=== PATIENT | male | born 1960 | race Caucasian/White ===

== ENCOUNTER 2018-09-22 21:57 | Emergency (ER) | payer OTHER ==
[2018-09-22 22:47] LABS: Absolute Lymphocytes (CBC) 2.3 K/uL (0.7-4.9); Absolute Monocytes 0.8 K/uL (0.1-1.3); Absolute Neutrophil 4.6 K/uL (1.8-8.0); Hematocrit 49.7 % (39.6-49.0); Lymphocytes % 28.2 % (15.3-44.8); MPV 8.6 fL (7.6-11.3); RBC Red Blood Cell Count 5.47 M/uL (4.33-5.43)
[2018-09-22 23:05] LABS: BUN Blood Urea Nitrogen 21 mg/dL (7-18); Bicarbonate 31 mmol/L (21-32); Glucose Level 161 mg/dL (74-106); NT PRO-BNP 179 pg/mL (<125); Potassium 3.7 mmol/L (3.5-5.1); Sodium Level 140 mmol/L (136-145); Troponin (Emerg Dept Use Only) < 0.02 ng/mL (0.0-0.045)
[2018-09-22] MEDS ORDERED: NITROGLYCERIN 0.4 MG/TAB SL ONE (23:58)
[2018-09-22] MEDS ORDERED: ASPIRIN 81 MG CHEWABLE TABLET ONE (23:58)
--- NOTE | 2018-09-23 00:09 | EDPHYS ---
Physician Documentation [facility] Name: Tani Weston Age: 58 yrs Sex: Male : 1960 Arrival Date: 09/22/2018 Time: 21:58 Bed 19 Private MD: ED Physician Stefan Riggs HPI: 09/22 22:46 This 58 yrs old Male presents to ER via Ambulatory with complaints of Chest rn Pain. 22:46 The patient or guardian reports chest pain that is located primarily in the substernal rn area. Onset: just prior to arrival. The pain radiates to The chest pain is described as causing indigestion, a pressure. Duration: The patient or guardian reports a single episode. Severity of pain: At its worst the pain was moderate in the emergency department the pain is unchanged. The patient has experienced similar episodes in the past. Reports several episodes of chest pain in past, last eval a couple of years ago, states sees Dr. Desouza in [facility], reports told "heart is fine", was at rest, began having pain in thorax, radiates to jaw and back, not better or worse, no improvement with rolaids. No cough/sob. No abd pain. This pain worse than previous episodes and slightly different.. Historical: - Allergies: 22:16 No Known Allergies; fc - Home Meds: 22:16 Bystolic oral oral [Active]; ramipril Oral [Active]; fc - PMHx: 22:16 Hypertension; Cancer- melonoma; Angina; fc - PSHx: 22:16 Melonoma removal; fc - Immunization history:: Last tetanus immunization: unknown, Flu vaccine is up to date. - Social history:: Smoking status: Patient uses tobacco products, denies chronic smoking, but will smoke occasionally, chewing tobacco. - Ebola Screening: : Patient negative for fever greater than or equal to 101.5 degrees Fahrenheit, and additional compatible Ebola Virus Disease symptoms Patient denies exposure to infectious person Patient denies travel to an Ebola-affected area in the 21 days before illness onset. - Family history:: not pertinent. - Hospitalizations: : No recent hospitalization is reported. ROS: 22:46 Constitutional: Negative for fever, chills, and weight loss, Eyes: Negative for injury, rn pain, redness, and discharge, ENT: Negative for injury, pain, and discharge, Cardiovascular: + chest pain Respiratory: Negative for shortness of breath, cough, wheezing, and pleuritic chest pain, Abdomen/GI: Negative for abdominal pain, nausea, vomiting, diarrhea, and constipation, MS/Extremity: Negative for injury and deformity, Skin: Negative for injury, rash, and discoloration, Neuro: Negative for headache, weakness, numbness, tingling, and seizure. Exam: 22:46 Constitutional: This is a well developed, well nourished patient who is awake, alert, rn and in no acute distress. Head/Face: Normocephalic, atraumatic. Eyes: Pupils equal round and reactive to light, extra-ocular motions intact. Lids and lashes normal. Conjunctiva and sclera are non-icteric and not injected. Cornea within normal limits. Periorbital areas with no swelling, redness, or edema. Cardiovascular: Regular rate and rhythm. No pulse deficits. Respiratory: Lungs have equal breath sounds bilaterally, clear to auscultation. No increased work of breathing, no retractions or nasal flaring. Abdomen/GI: soft, non-tender Skin: Warm, dry MS/ Extremity: Pulses equal, no cyanosis. Neurovascular intact. Full, normal range of motion. Equal circumference. Neuro: Awake and alert, GCS 15, oriented to person, place, time, and situation. Vital Signs: 22:00 BP 164 / 103; Pulse 72; Resp 20; Temp 98.1(O); Pulse Ox 98% on R/A; Weight 128.82 kg fc (R); Height 5 ft. 11 in. (180.34 cm) (R); Pain 8/10; 23:00 BP 134 / 95; Pulse 82; Resp 20 S; Pulse Ox 96% on R/A; cc3 09/23 00:06 BP 113 / 69; Pulse 89; Resp 22 S; Pulse Ox 97% on 2 lpm NC; cc3 01:09 BP 119 / 79; Pulse 79; Resp 21 S; Pulse Ox 97% on 2 lpm NC; cc3 09/22 22:00 Body Mass Index 39.61 (128.82 kg, 180.34 cm) MDM: 09/22 22:03 Patient medically screened. rn 09/23 00:06 Differential diagnosis: acute myocardial infarction, acute pericarditis, coronary rn artery disease chest wall pain, congestive heart failure costochondritis, esophagitis, gastritis, pneumonia, pneumothorax. Data reviewed: vital signs, nurses notes, lab test result(s), EKG, radiologic studies, plain films, and as a result, I will admit patient. Counseling: I had a detailed discussion with the patient and/or guardian regarding: the historical points, exam findings, and any diagnostic results supporting the discharge/admit diagnosis, lab results, radiology results, the need to transfer to another facility. Response to treatment: the patient's symptoms have mildly improved after treatment, and as a result, I will admit patient. Admission orders: after a detailed discussion of the patient's condition and case, the admit orders are written by me. ED course: Pt with neg trop, + t wave inversions inferolateral, accepted for transfer to 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 . 09/22 22:10 Order name: Basic Metabolic Panel rn 09/22 22:10 Order name: CBC with Diff rn 09/22 22:10 Order name: NT PRO-BNP rn 09/22 22:10 Order name: Troponin (emerg Dept Use Only) rn 09/22 22:51 Order name: CBC with Automated Diff; Complete Time: 23:01 EDMS 09/22 23:05 Order name: Basic Metabolic Panel; Complete Time: 23:31 EDMS 09/22 22:10 Order name: XRAY Chest (1 view) rn 09/22 22:10 Order name: EKG; Complete Time: 22:10 rn 09/22 22:10 Order name: Cardiac monitoring; Complete Time: : rn 09/22 22:10 Order name: EKG - Nurse/Tech; Complete Time: 22: rn 09/22 23:05 Order name: Troponin (Emerg Dept Use Only); Complete Time: 23:31 EDMS 09/22 23:05 Order name: NT PRO-BNP; Complete Time: 23:31 EDMS 09/22 22:10 Order name: IV Saline Lock; Complete Time: : rn 09/22 22:10 Order name: Labs collected and sent; Complete Time: 22:25 rn 09/22 22:10 Order name: O2 Per Protocol; Complete Time: 22: rn 09/22 22:10 Order name: O2 Sat Monitoring; Complete Time: :25 rn Administered Medications: 09/22 23:45 Drug: Aspirin Chewable Tablet 324 mg Route: PO; cc3 23:54 Follow up: Response: No adverse reaction cc3 23:47 Drug: Nitroglycerin 0.4 mg Route: Sublingual; cc3 09/23 00:30 Follow up: Response: No adverse reaction; Pain is decreased cc3 Disposition: 09/23/18 00:07 Transfer ordered to [facility]. Diagnosis is Chest pain, unspecified. - Reason for transfer: Higher level of care. - Accepting physician is . - Condition is Stable. - Problem is new. - Symptoms have improved. Signatures: Dispatcher [employer] EDAna Shukla RN RN Stefan Riggs MD MD rn Bryson, James, RN RN jb4 Jena Todd cc3 Corrections: (The following items were deleted from the chart) 01:37 00:07 09/23/2018 00:07 Transfer ordered to [facility]. Diagnosis is jb4 Chest pain, unspecified. Reason for transfer: Higher level of care. Accepting physician is . Condition is Stable. Problem is new. Symptoms have improved. rn
--- NOTE | 2018-09-23 00:09 | ER ---
Nurse's Notes [facility] Name: Tani Weston Age: 58 yrs Sex: Male : 1960 Arrival Date: 09/22/2018 Time: 21:58 Bed 19 Private MD: Diagnosis: Chest pain, unspecified Presentation: 09/22 22:00 Presenting complaint: Patient states: that he was sitting up drink a tea and started to have chest pain that radiates to back and jaw. Positive shortness of breath and nausea. Transition of care: patient was not received from another setting of care. Onset of symptoms was September 22, 2018 at 21:15. Risk Assessment: Do you want to hurt yourself or someone else? Patient reports no desire to harm self or others. Initial Sepsis Screen: Does the patient meet any 2 criteria? No. Patient's initial sepsis screen is negative. Does the patient have a suspected source of infection? No. Patient's initial sepsis screen is negative. Care prior to arrival: Medication(s) given: Rolaids 1/2 pack at 2130. 22:00 Method Of Arrival: Ambulatory 22:00 Acuity: JAMARI 3 Triage Assessment: 22:05 General: Appears in no apparent distress. uncomfortable, Behavior is calm, cooperative, cc3 appropriate for age. Pain: Complains of pain in chest. EENT: No signs and/or symptoms were reported regarding the EENT system. Neuro: Level of Consciousness is awake, alert, obeys commands, Oriented to person, place, time, situation, Appropriate for age. Cardiovascular: Patient's skin is warm and dry. Respiratory: Airway is patent Respiratory effort is even, unlabored, Respiratory pattern is regular, symmetrical. GI: Abdomen is round obese. : No signs and/or symptoms were reported regarding the genitourinary system. Derm: No signs and/or symptoms reported regarding the dermatologic system. Musculoskeletal: Circulation, motion, and sensation intact. Range of motion: intact in all extremities. Historical: - Allergies: 22:16 No Known Allergies; fc - Home Meds: 22:16 Bystolic oral oral [Active]; ramipril Oral [Active]; fc - PMHx: 22:16 Hypertension; Cancer- melonoma; Angina; fc - PSHx: 22:16 Melonoma removal; fc - Immunization history:: Last tetanus immunization: unknown, Flu vaccine is up to date. - Social history:: Smoking status: Patient uses tobacco products, denies chronic smoking, but will smoke occasionally, chewing tobacco. - Ebola Screening: : Patient negative for fever greater than or equal to 101.5 degrees Fahrenheit, and additional compatible Ebola Virus Disease symptoms Patient denies exposure to infectious person Patient denies travel to an Ebola-affected area in the 21 days before illness onset. - Family history:: not pertinent. - Hospitalizations: : No recent hospitalization is reported. Screenin:00 Abuse screen: Denies threats or abuse. Nutritional screening: No deficits noted. fc Tuberculosis screening: No symptoms or risk factors identified. Fall Risk None identified. Assessment: 22:05 General: see triage assessment. cc3 22:05 Pain: Pain radiates to back and jaw Pain began suddenly. cc3 23:30 Reassessment: Patient appears in no apparent distress at this time. Patient and/or cc3 family updated on plan of care and expected duration. Pain level reassessed. Patient is alert, oriented x 3, equal unlabored respirations, skin warm/dry/pink. 09/23 00:08 Reassessment: Patient appears in no apparent distress at this time. Patient and/or cc3 family updated on plan of care and expected duration. Pain level reassessed. Patient is alert, oriented x 3, equal unlabored respirations, skin warm/dry/pink. 00:30 Reassessment: Dr. Riggs ordered patient for transfer to [facility]. Report called cc3 and handed over to RN Mirtha Mccall. Transfer form completed and signed by the patient himself. 01:35 Reassessment: Patient appears in no apparent distress at this time. Patient and/or cc3 family updated on plan of care and expected duration. Pain level reassessed. Patient is alert, oriented x 3, equal unlabored respirations, skin warm/dry/pink. [facility] came for patient transport. Patient left ER for transfer vitally stable by EMS stretcher. Patient states symptoms have improved. Vital Signs: 09/22 22:00 BP 164 / 103; Pulse 72; Resp 20; Temp 98.1(O); Pulse Ox 98% on R/A; Weight 128.82 kg fc (R); Height 5 ft. 11 in. (180.34 cm) (R); Pain 8/10; 23:00 BP 134 / 95; Pulse 82; Resp 20 S; Pulse Ox 96% on R/A; cc3 09/23 00:06 BP 113 / 69; Pulse 89; Resp 22 S; Pulse Ox 97% on 2 lpm NC; cc3 01:09 BP 119 / 79; Pulse 79; Resp 21 S; Pulse Ox 97% on 2 lpm NC; cc3 09/22 22:00 Body Mass Index 39.61 (128.82 kg, 180.34 cm) ED Course: 09/22 21:58 Patient arrived in ED. mr 22:00 Arm band placed on Patient placed in an exam room, on a stretcher. fc 22:00 Patient has correct armband on for positive identification. Placed in gown. Bed in low fc position. Call light in reach. awake overnight monitor on. Pulse ox on. NIBP on. 22:00 No provider procedures requiring assistance completed. fc 22:03 Stefan Riggs MD is Attending Physician. rn 22:05 Jena Todd is Primary Nurse. cc3 22:05 Patient maintains SpO2 saturation greater than 95% on room air. cc3 22:13 Triage completed. 22:23 EKG done, by ED staff, reviewed by Stefan Riggs MD. Inserted saline lock: 20 gauge in ag4 left antecubital area, using aseptic technique. Blood collected. 09/23 01:35 Patient transferred, IV remains in place. cc3 Administered Medications: 09/22 23:45 Drug: Aspirin Chewable Tablet 324 mg Route: PO; cc3 23:54 Follow up: Response: No adverse reaction cc3 23:47 Drug: Nitroglycerin 0.4 mg Route: Sublingual; cc3 09/23 00:30 Follow up: Response: No adverse reaction; Pain is decreased cc3 Outcome: 00:07 ER care complete, transfer ordered by . rn 01:35 Transferred by ground EMS to [facility], Transfer form completed. cc3 01:35 Condition: stable 01:35 Instructed on the need for transfer, Demonstrated understanding of instructions. 01:37 Patient left the ED. jb4 Signatures: Reena Higgins mr Ana Prince, RN ANGEL Stefan Riggs MD MD rn Bryson, James, RN RN [facility] Jena Todd cc3 Ke Argu[place] ag4 Corrections: (The following items were deleted from the chart) 01:11 01:09 BP 119 / 79; Pulse 79bpm; Resp 23bpm; Spontaneous; Pulse Ox 97% 2 lpm Nasal cc3 Cannula; cc3
[2018-09-23 01:43] VITALS: TEMP 98.1
[2018-09-23 01:45] VITALS: O2SAT 97
[2018-09-23 01:46] VITALS: BP 119/79
--- NOTE | 2018-09-23 10:00 | RAD REPORT ---
EXAM DESCRIPTION: René Single View09/22/2018 10:54 pm CLINICAL HISTORY: Chest pain COMPARISON: none FINDINGS: The lungs appear clear of acute infiltrate. The heart is normal size IMPRESSION: No acute abnormalities displayed
--- NOTE | 2018-09-23 12:35 | EKG ---
Test Date: 2018-09-22 Test Time: 22:04:47 Punching Machine Operator: [email or web address] MEASUREMENT RESULTS: Intervals: Rate: 80 ND: 180 QRSD: 106 QT: 388 QTc: 447 [place]: P: 46 ND: 180 QRS: 20 T: 158 INTERPRETIVE STATEMENTS: Normal sinus rhythm Anterior infarct, age undetermined ST & T wave abnormality, consider inferolateral ischemia Abnormal ECG No previous ECG available for comparison Electronically Signed On 09-23-18 12:34:37 DUMP TRUCK OPERATOR by Stanford Donis
== END 2018-09-23 01:37 | disposition short-term general hospital (02) ==
LOC: ER 21:57
DX: R07.9 Chest pain, unspecified (principal); I10 Essential (primary) hypertension; C44.90 Unspecified malignant neoplasm of skin, unspecified; Z72.0 Tobacco use
CPT/HCPCS: 36415; 71045; 80048; 83880; 84484; 85025; 93005; 99285